=== PATIENT | female | born 1950 | race Hispanic/Latino ===

== ENCOUNTER 2018-04-26 09:47 | Emergency (ER) | payer OTHER ==
[2018-04-26] MEDS ORDERED: NA CHLORIDE 0.9% 1,000 ML ONE (10:11)
[2018-04-26] MEDS ORDERED: ONDANSETRON 4 MG/2 ML VIAL ONE ×2 (10:11→11:57)
[2018-04-26] MEDS ORDERED: MORPHINE 4 MG/ML SYR ONE (10:11)
[2018-04-26 10:27] LABS: Absolute Lymphocytes (CBC) 1.2 K/uL (0.7-4.9); Absolute Monocytes 0.4 K/uL (0.1-1.3); Absolute Neutrophil 7.8 K/uL (1.8-8.0); Basophils % 0.5 % (0-1.3); Eosinophils % 1.1 % (0-4.4); Lymphocytes % 12.2 % (15.3-44.8); MCH 28.5 pg (27.0-35.0); MCV 84.4 fL (80-100); MPV 9.8 fL (7.6-11.3); Monocytes % 4.2 % (3.3-12.3); RBC Red Blood Cell Count 4.26 M/uL (3.86-4.86)
[2018-04-26 10:40] LABS: Albumin 3.8 g/dL (3.4-5.0); Bilirubin Direct 0.1 mg/dL (0-0.2); Bilirubin Total 0.5 mg/dL (0.2-1.0); Potassium 4.2 mmol/L (3.5-5.1); Protein, Total 7.3 g/dL (6.4-8.2)
--- NOTE | 2018-04-26 11:56 | RAD REPORT ---
EXAM DESCRIPTION: CT - Abdomen Pelvis W Contrast - 04/26/2018 11:26 am CLINICAL HISTORY: Abdominal pain with vomiting and diarrhea COMPARISON: 2010 TECHNIQUE: Computed axial tomography of the abdomen pelvis was obtained. 100 cc Isovue-300 was admin istered intravenously. Oral contrast was not requested which limits evaluation of bowel. All CT scans are performed using dose optimization technique as appropriate and may include automated exposure control or mA/KV adjustment according to patient size. FINDINGS: The liver, spleen, pancreas, adrenal and kidneys appear unremarkable. A duodenum diverticulum is present A right hemicolectomy has been performed. Fecalization of ileum is present. Distal ileum is mildly di lated. A hysterectomy has been performed. IMPRESSION: Right hemicolectomy. Fecalization of ileum with mild dilatation may indicate an enteritis. An early partial small bowel ob struction is considered less likely. If the patient's symptoms persist followup abdominal plain film series would be recommended
[2018-04-26 12:15] LABS: Urine Blood 1+ (NEG); Urine Glucose NEGATIVE (NEG); Urine Protein NEGATIVE (NEG); Urine Specific Gravity 1.015 (1.005-1.030)
--- NOTE | 2018-04-26 12:26 | ER ---
Nurse's Notes [facility] Name: Darling Cortés Age: 67 yrs Sex: Female : 1950 Arrival Date: 04/26/2018 Time: 09:50 Bed 15 Private MD: None, None Diagnosis: Generalized abdominal pain Presentation: 04/26 09:56 Presenting complaint: Patient states: Upper abdominal pain with nausea and diarrhea aj that started this AM at 0300. Transition of care: patient was not received from another setting of care. Onset of symptoms was April 26, 2018. Risk Assessment: Do you want to hurt yourself or someone else? Patient reports no desire to harm self or others. Initial Sepsis Screen: Does the patient meet any 2 criteria? No. Patient's initial sepsis screen is negative. Does the patient have a suspected source of infection? No. Patient's initial sepsis screen is negative. Care prior to arrival: None. 09:56 Method Of Arrival: Ambulatory 09:56 Acuity: GERMÁN 3 aj Triage Assessment: 10:01 General: Appears in no apparent distress. uncomfortable, Behavior is calm, cooperative, aj appropriate for age. Pain: Complains of pain in epigastric area and right upper quadrant. Neuro: Level of Consciousness is awake, alert, obeys commands, Oriented to person, place, time, situation, Appropriate for age. Respiratory: Airway is patent Respiratory effort is even, unlabored, Respiratory pattern is regular, symmetrical. GI: Abdomen is flat. GI: Reports upper abdominal pain, diarrhea, epigastric pain, nausea. Derm: Skin is intact, is healthy with good turgor, Skin is pink, warm \T\ dry. normal. Historical: - Allergies: 10:01 Macrobid; aj 10:01 Augmentin; aj 10:01 Cipro; aj - Home Meds: 10:01 rosuvastatin 10 mg oral tab 1 tab once daily [Active]; Actos 30 mg Oral tab 1 tab once aj daily [Active]; levothyroxine 50 mcg tab 1 tab once daily [Active]; omeprazole 20 mg Oral cpDR 1 cap once daily [Active]; lisinopril 2.5 mg Oral tab 1 tab once daily [Active]; - PMHx: 10:01 Hypertension; Hyperlipidemia; GERD; aj - PSHx: 10:01 Thyroidectomy; Hysterectomy; Bowel resection; aj - Immunization history:: Adult Immunizations up to date. - Social history:: Smoking status: Patient/guardian denies using tobacco. - Ebola Screening: : Patient negative for fever greater than or equal to 101.5 degrees Fahrenheit, and additional compatible Ebola Virus Disease symptoms Patient denies exposure to infectious person Patient denies travel to an Ebola-affected area in the 21 days before illness onset No symptoms or risks identified at this time. Screenin:03 Abuse screen: Denies threats or abuse. Denies injuries from another. Nutritional aj screening: No deficits noted. Tuberculosis screening: No symptoms or risk factors identified. Fall Risk None identified. Assessment: 10:21 Reassessment: see triage. aj 10:21 GI: Bowel sounds present X 4 quads. Abd is soft and non tender. aj 11:57 Reassessment: Patient appears in no apparent distress at this time. No changes from aj previously documented assessment. Patient and/or family updated on plan of care and expected duration. Pain level reassessed. Patient is alert, oriented x 3, equal unlabored respirations, skin warm/dry/pink. Patient denies pain at this time. Patient states feeling better. Patient states symptoms have improved. Vital Signs: 10:01 BP 179 / 79; Pulse 98; Resp 15; Temp 98.9; Pulse Ox 99% on R/A; Weight 62.6 kg; Height aj 5 ft. 5 in. (165.10 cm); 10:56 BP 143 / 56; Pulse 81; Resp 16; Pulse Ox 100% on R/A; aj 11:57 BP 141 / 54; Pulse 75; Resp 16; Pulse Ox 98% on R/A; aj 12:35 BP 133 / 48; Pulse 79; Resp 17; Pulse Ox 99% on R/A; aj 10:01 Body Mass Index 22.96 (62.60 kg, 165.10 cm) aj ED Course: 09:50 Patient arrived in ED. mr 09:50 None, None is Private Physician. mr 09:51 Rosie Calix, ANANTH is Primary Nurse. aj 09:53 [facility]leg[facility] kb 09:53 Josemanuel Coon MD is Attending Physician. kb 09:57 Triage completed. aj 10:01 Arm band placed on left wrist. Patient placed in an exam room, on a stretcher. aj 10:03 Patient has correct armband on for positive identification. Placed in gown. Bed in low aj position. Call light in reach. Side rails up X 1. Adult w/ patient. Pulse ox on. NIBP on. 10:56 No provider procedures requiring assistance completed. Patient did not have IV access aj during this emergency room visit. 11:26 CT Abd/Pelvis - W/Contrast In Process Unspecified. EDMS 11:26 CT completed. Patient tolerated procedure well. Patient moved back from CT. bq Administered Medications: 10:15 Drug: NS 0.9% 1000 ml Route: IV; Rate: 1000 ml; Site: left antecubital; aj 11:55 Follow up: Response: No adverse reaction; IV Status: Completed infusion; IV Intake: aj 1000ml 10:15 Drug: Zofran 4 mg Route: IVP; Site: left antecubital; aj 11:56 Follow up: Response: Nausea is decreased aj 10:15 Drug: morphine 4 mg Route: IVP; Site: left antecubital; aj 11:56 Follow up: Response: Pain is decreased aj 11:55 Drug: Zofran 4 mg Route: IVP; Site: left antecubital; aj 12:40 Follow up: Response: No adverse reaction; Nausea is decreased aj Intake: 11:55 IV: 1000ml; Total: 1000ml. aj Outcome: 12:24 Discharge ordered by . kb 12:35 Discharged to home ambulatory. aj 12:35 Condition: good 12:35 Discharge instructions given to patient, family, Instructed on discharge instructions, follow up and referral plans. medication usage, Demonstrated understanding of instructions, follow-up care, medications, Prescriptions given X 3. 12:37 Patient left the ED. aj Signatures: Dispatcher [employer] EDMS Lady Alegria, Rosie Dinh, RN Angela Elliott mr Bradjose danielColette bq
--- NOTE | 2018-04-26 12:26 | EDPHYS ---
Physician Documentation [facility] Name: Darling Cortés Age: 67 yrs Sex: Female : 1950 Arrival Date: 04/26/2018 Time: 09:50 Bed 15 Private MD: None, None ED Physician Josemanuel Coon HPI: 04/26 10:34 This 67 yrs old Female presents to ER via Ambulatory with complaints of kb Abdominal Pain, Nausea/Vomiting/Diarrhea. 10:34 The patient presents with abdominal pain in the upper abdomen. Onset: The kb symptoms/episode began/occurred this morning. The symptoms do not radiate. Associated signs and symptoms: Pertinent positives: diarrhea, nausea, Pertinent negatives: fever, vomiting. The symptoms are described as constant, waxing/waning. Modifying factors: The symptoms are alleviated by nothing, the symptoms are aggravated by pressure. Severity of pain: At its worst the pain was moderate in the emergency department the pain is unchanged. The patient has not experienced similar symptoms in the past. The patient has not recently seen a physician. Historical: - Allergies: 10:01 Macrobid; aj 10:01 Augmentin; aj 10:01 Cipro; aj - Home Meds: 10:01 rosuvastatin 10 mg oral tab 1 tab once daily [Active]; Actos 30 mg Oral tab 1 tab once aj daily [Active]; levothyroxine 50 mcg tab 1 tab once daily [Active]; omeprazole 20 mg Oral cpDR 1 cap once daily [Active]; lisinopril 2.5 mg Oral tab 1 tab once daily [Active]; - PMHx: 10:01 Hypertension; Hyperlipidemia; GERD; aj - PSHx: 10:01 Thyroidectomy; Hysterectomy; Bowel resection; aj - Immunization history:: Adult Immunizations up to date. - Social history:: Smoking status: Patient/guardian denies using tobacco. - Ebola Screening: : Patient negative for fever greater than or equal to 101.5 degrees Fahrenheit, and additional compatible Ebola Virus Disease symptoms Patient denies exposure to infectious person Patient denies travel to an Ebola-affected area in the 21 days before illness onset No symptoms or risks identified at this time. ROS: 10:34 Constitutional: Negative for fever, chills, and weight loss, ENT: Negative for injury, kb pain, and discharge, Neck: Negative for injury, pain, and swelling, Cardiovascular: Negative for chest pain, palpitations, and edema, Respiratory: Negative for shortness of breath, cough, wheezing, and pleuritic chest pain, Back: Negative for injury and pain, MS/Extremity: Negative for injury and deformity, Skin: Negative for injury, rash, and discoloration, Neuro: Negative for headache, weakness, numbness, tingling, and seizure. 10:34 Abdomen/GI: Positive for abdominal pain, nausea, diarrhea. Exam: 10:34 Constitutional: This is a well developed, well nourished patient who is awake, alert, kb and in no acute distress. Head/Face: Normocephalic, atraumatic. Chest/axilla: Normal chest wall appearance and motion. Nontender with no deformity. No lesions are appreciated. Cardiovascular: Regular rate and rhythm with a normal S1 and S2. No gallops, murmurs, or rubs. Normal PMI, no JVD. No pulse deficits. Respiratory: Lungs have equal breath sounds bilaterally, clear to auscultation and percussion. No rales, rhonchi or wheezes noted. No increased work of breathing, no retractions or nasal flaring. Back: No spinal tenderness. No costovertebral tenderness. Full range of motion. Skin: Warm, dry with normal turgor. Normal color with no rashes, no lesions, and no evidence of cellulitis. MS/ Extremity: Pulses equal, no cyanosis. Neurovascular intact. Full, normal range of motion. Neuro: Awake and alert, GCS 15, oriented to person, place, time, and situation. Cranial nerves II-XII grossly intact. Motor strength 5/5 in all extremities. Sensory grossly intact. Cerebellar exam normal. Normal gait. 10:34 Abdomen/GI: Inspection: abdomen appears normal, Bowel sounds: normal, in all quadrants, Palpation: soft, in all quadrants, moderate abdominal tenderness, in the abdomen diffusely, severe abdominal tenderness. Vital Signs: 10:01 BP 179 / 79; Pulse 98; Resp 15; Temp 98.9; Pulse Ox 99% on R/A; Weight 62.6 kg; Height aj 5 ft. 5 in. (165.10 cm); 10:56 BP 143 / 56; Pulse 81; Resp 16; Pulse Ox 100% on R/A; aj 11:57 BP 141 / 54; Pulse 75; Resp 16; Pulse Ox 98% on R/A; aj 12:35 BP 133 / 48; Pulse 79; Resp 17; Pulse Ox 99% on R/A; aj 10:01 Body Mass Index 22.96 (62.60 kg, 165.10 cm) aj MDM: 09:53 Patient medically screened. kb 10:40 Data reviewed: vital signs, nurses notes. Data interpreted: Pulse oximetry: on room air kb is 99 %. Interpretation: normal. 12:23 Counseling: I had a detailed discussion with the patient and/or guardian regarding: the kb historical points, exam findings, and any diagnostic results supporting the discharge/admit diagnosis, lab results, radiology results, the need for outpatient follow up, a family practitioner, to return to the emergency department if symptoms worsen or persist or if there are any questions or concerns that arise at home. ED course: Pt educated on CT findings. Will return for worsening symptoms including pain and vomiting. Will follow up with PCP this week. . 04/26 09:58 Order name: Amylase, Serum; Complete Time: 10:42 kb 04/26 09:58 Order name: Basic Metabolic Panel; Complete Time: 10:42 kb 04/26 09:58 Order name: CBC with Diff; Complete Time: 10:34 kb 04/26 09:58 Order name: Hepatic Function; Complete Time: 10:42 kb 04/26 09:58 Order name: Lipase; Complete Time: 10:42 kb 04/26 11:50 Order name: Urine Dipstick--Ancillary (enter results); Complete Time: 12:18 bd 04/26 09:58 Order name: IV Saline Lock; Complete Time: 10:21 kb 04/26 09:58 Order name: Labs collected and sent; Complete Time: 10:21 kb 04/26 09:58 Order name: Urine Dipstick-Ancillary (obtain specimen); Complete Time: 10:21 kb 04/26 10:43 Order name: CT Abd/Pelvis - W/Contrast; Complete Time: 11:59 kb Administered Medications: 10:15 Drug: NS 0.9% 1000 ml Route: IV; Rate: 1000 ml; Site: left antecubital; aj 11:55 Follow up: Response: No adverse reaction; IV Status: Completed infusion; IV Intake: aj 1000ml 10:15 Drug: Zofran 4 mg Route: IVP; Site: left antecubital; aj 11:56 Follow up: Response: Nausea is decreased aj 10:15 Drug: morphine 4 mg Route: IVP; Site: left antecubital; aj 11:56 Follow up: Response: Pain is decreased aj 11:55 Drug: Zofran 4 mg Route: IVP; Site: left antecubital; aj 12:40 Follow up: Response: No adverse reaction; Nausea is decreased aj Disposition: 16:11 Co-signature as Attending Physician, Josemanuel Coon MD. Disposition: 04/26/18 12:24 Discharged to Home. Impression: Generalized abdominal pain. - Condition is Stable. - Discharge Instructions: Abdominal Pain, Adult, [id number]. - Prescriptions for Bentyl 20 mg Oral Tablet - take 1 tablet by ORAL route every 6 hours As needed; 20 tablet. Zofran 4 mg Oral Tablet - take 1 tablet by ORAL route every 6 hours As needed; 20 tablet. Tramadol 50 mg Oral Tablet - take 1 tablet by ORAL route every 8 hours as needed; 12 tablet. - Medication Reconciliation Form, Thank You Letter, Antibiotic Education, Prescription Opioid Use form. - Follow up: Emergency Department; When: As needed; Reason: Worsening of condition. Follow up: Private Physician; When: 2 - 3 days; Reason: Recheck today's complaints, Continuance of care, Re-evaluation by your physician. Signatures: Dispatcher [employer] Lady Fung, PROTECTION SPECIALIST-C PROTECTION SPECIALIST-Samb Rosie Calix RN RN aj Starr, Gregory, MD MD Corrections: (The following items were deleted from the chart) 12:37 12:24 04/26/2018 12:24 Discharged to Home. Impression: Generalized abdominal pain. aj Condition is Stable. Forms are Medication Reconciliation Form, Thank You Letter, Antibiotic Education, Prescription Opioid Use. Follow up: Emergency Department; When: As needed; Reason: Worsening of condition. Follow up: Private Physician; When: 2 - 3 days; Reason: Recheck today's complaints, Continuance of care, Re-evaluation by your physician. kb
== END 2018-04-26 12:37 | disposition home or self-care (01) ==
LOC: ER 09:47
DX: R10.84 Generalized abdominal pain (principal); R11.0 Nausea; R19.7 Diarrhea, unspecified; Z88.1 Allergy status to other antibiotic agents; I10 Essential (primary) hypertension; E78.5 Hyperlipidemia, unspecified; K21.9 Gastro-esophageal reflux disease without esophagitis
CPT/HCPCS: 36415; 74177; 80048; 80076; 81003; 82150; 83690; 85025; J2405 ×2; J7030; Q9967; 96361; 96374; 96375; 99284